=== PATIENT | female | born 1990 | race American Indian/Alaskan Native ===

== ENCOUNTER 2017-06-07 05:42 | Day surgery (SDC) | payer MEDICAID ==
[2017-05-23 09:16] VITALS: BMI 19.8
[2017-06-07] MEDS ORDERED: Propofol 10 mg/ml Inj (20 ML) ONE (07:10)
[2017-06-07] MEDS ORDERED: Midazolam 2 MG/2 ML VIAL ONE (07:10)
[2017-06-07] MEDS ORDERED: Acetaminophen/Codeine elixir 120-12mg/5ml PO PRN (07:41)
[2017-06-07] MEDS ORDERED: ceFAZolin IV 1 gm in Dextrose 1 GM/50 ML BAG IVPB ONE (07:44)
[2017-06-07] MEDS ORDERED: Dextrose 5%/0.45% NS 1,000 ML IV SCH (07:45)
[2017-06-07] MEDS ORDERED: Neostigmine Methylsulfate 3mg/3ml Syringe IV ONE (08:03)
[2017-06-07] MEDS ORDERED: Lidocaine Hydrochloride 5 ML INJ ONE (08:03)
[2017-06-07] MEDS ORDERED: HYDROmorphone 0.5 mg/0.5 ml ISec IVP PRN (08:21)
[2017-06-07 11:23] VITALS: BP 111/72; PULSE 76; RESP 20; TEMP 97; O2SAT 100
--- NOTE | 2017-06-07 12:38 | OP ---
PROCEDURE DATE: 06/07/2017 PREOPERATIVE DIAGNOSIS: Chronic tonsillitis. POSTOPERATIVE DIAGNOSIS: Chronic tonsillitis. PROCEDURE: Tonsillectomy. SIGNIFICANT FINDINGS: 2+ tonsils. DESCRIPTION OF PROCEDURE: The patient was brought into the room and placed in supine position. Anesthesia was initiated through an ET tube. The patient was draped in the usual manner. Right tonsil was grabbed and pulled medially. Incision was made in the anterior tonsillar pillar using a plasma knife. Dissections were done between tonsil and tonsillar fossa using plasma knife until the tonsil was removed. Bleeding was controlled using plasma knife. Next, the other tonsil was grabbed and pulled medially. Incision was made in the anterior tonsillar pillar using a plasma knife. Dissections were done between tonsil and tonsillar fossa using plasma knife until the tonsil was removed. Bleeding was controlled using a plasma knife. Both the tonsillar beds were rubbed vigorously with a plasma knife wand. No bleeding was noted. Mouth gag was let down for 30 seconds being noted. The mouth gag was taken down and removed. The patient was taken off anesthesia and taken to recovery room in stable manner. Anthony Miranda MD
== END 2017-06-07 11:25 | disposition home or self-care (01) ==
LOC: C.SDS 05:42
PROVIDERS: ATTEND Otolaryngology
DX: J35.01 Chronic tonsillitis (principal)
CPT/HCPCS: 42826; 88304; J0690; J2250; J2405; J2704; J2710; J3010

== ENCOUNTER 2017-06-10 16:19 | Emergency (ER) | payer MEDICAID ==
[2017-06-10 16:20] VITALS: BMI 19.8
[2017-06-10 16:44] VITALS: RESP 18
[2017-06-10] MEDS ORDERED: Sodium Chloride 0.9% 1,000 ML IV ONE (17:48)
[2017-06-10] MEDS ORDERED: Dexamethasone 4 mg/1 ml ONE (18:02)
[2017-06-10 18:03] LABS: BASO % 0.5 % (0.0-2.0); EOS # 0.1 K/uL (0.0-0.7); EOS % 0.5 % (0.0-4.0); HEMATOCRIT 40.3 % (34.0-47.0); LYMPH # 2.5 K/uL (1.0-4.3); LYMPH % 26.2 % (20.0-40.0); MEAN CELL VOLUME 79.1 fL (81.0-99.0); MEAN CORPUSCULAR HEMOGLOBIN 26.2 pg (27.0-31.0); MEAN CORPUSCULAR HGB CONC 33.1 g/dL (33.0-37.0); MEAN PLATELET VOLUME 9.5 fL (7.2-11.7); MONO # 0.9 K/uL (0.0-0.8); NRBC % 0.1 % (0.0-2.0); RED CELL DISTRIBUTION WIDTH 13.6 % (11.5-14.5); WHITE BLOOD COUNT 9.7 K/uL (4.8-10.8)
[2017-06-10] MEDS ORDERED: Sodium Chloride 0.9% 1,000 ML ONE (18:03)
[2017-06-10 18:12] LABS: CHLORIDE 101 mmol/L (98-107); INR 1.1
[2017-06-10 18:13] LABS: SODIUM 138 mmol/L (132-148)
[2017-06-10 18:15] LABS: ALB/GLOB RATIO 1.1 (1.0-2.1); ALKALINE PHOSPHATASE 55 U/L (38-126); AST/SGOT 23 U/L (14-36); BILIRUBIN,TOTAL 1.1 mg/dL (0.2-1.3); BLOOD UREA NITROGEN 14 mg/dL (7-17); CARBON DIOXIDE 27 mmol/L (22-30); GFR AFRICAN-AMERICAN > 60; GLUCOSE,RANDOM 77 mg/dL (65-105); TOTAL PROTEIN 8.6 g/dL (6.3-8.3)
[2017-06-10 18:16] LABS: ALT/SGPT 30 U/L (9-52); CALCIUM 9.3 mg/dl (8.6-10.4)
--- NOTE | 2017-06-10 18:27 | C.PDOC ---
History Of Present Illness <Easton Collins - Last Filed: 06/10/17 19:12> <Irving Arthur - Last Filed: 06/10/17 20:39> 27 y/o female presents to ED s/p Tonsillectomy on Tuesday with complaints of neck pain, headache and difficulty swallowing. Patient denies injury, fever, chills, n/v, numbness or any other complaints at this time. (Easton Collins) History Per: Patient History/Exam Limitations: None Onset/Duration Of Symptoms: Days Current Symptoms Are (Timing): Still Present <Easton Collins - Last Filed: 06/10/17 19:12> <Irving Arthur - Last Filed: 06/10/17 20:39> Time Seen by Provider: 06/10/17 17:41 Chief Complaint (Nursing): ENT Problem Past Medical History Reviewed: Historical Data, Nursing Documentation, Vital Signs - Medical History PMH: Anxiety, Asthma, Back Problems, Depression, Chronic Pain (Lower Back) Surgical History: Tonsillectomy Family History: States: No Known Family Hx - Social History Hx Alcohol Use: No Hx Substance Use: No - Immunization History Hx Tetanus Toxoid Vaccination: No Hx Influenza Vaccination: No Hx Pneumococcal Vaccination: No <Easton Collins - Last Filed: 06/10/17 19:12> Review Of Systems Except As Marked, All Systems Reviewed And Found Negative. Musculoskeletal: Positive for: Neck Pain Neurological: Positive for: Headache <Easton Collins - Last Filed: 06/10/17 19:12> Physical Exam - Physical Exam Appears: Non-toxic, No Acute Distress Skin: Normal Color, Warm, Dry, No Rash Head: Atraumatic, Normacephalic Eye(s): bilateral: Normal Inspection Oral Mucosa: Moist, Trismus Throat: Normal, No Erythema, Other (No active bleeding) Neck: Normal ROM, Supple Chest: Symmetrical Cardiovascular: Rhythm Regular, No Murmur Respiratory: Normal Breath Sounds, No Rales, No Rhonchi, No Wheezing Gastrointestinal/Abdominal: Soft, No Tenderness, No Guarding, No Rebound Neurological/Psych: Oriented x3 <Easton Collins - Last Filed: 06/10/17 19:12> ED Course And Treatment - Laboratory Results Result Diagrams: 06/10/17 18:00 06/10/17 18:00 O2 Sat by Pulse Oximetry: 99 (RA) Pulse Ox Interpretation: Normal <Easton Collins - Last Filed: 06/10/17 19:12> - Laboratory Results Result Diagrams: 06/10/17 18:00 06/10/17 18:00 Pulse Ox Interpretation: Normal Progress Note: spoke with dr argueta., ok to discharge. Patient tolerating po. <Irving Arthur - Last Filed: 06/10/17 20:39> Medical Decision Making <Easton Collins - Last Filed: 06/10/17 19:12> <Yisel Arthurdi - Last Filed: 06/10/17 20:39> Medical Decision Making: Time: [address] Argueta who requests patient to be given Decadron and a reassessment 2-3 hours after. He is requesting a call back after the reassessment and states no imaging studies should be done at the moment. Time: 0700 Patient to be signed out to Dr. Arthur pending reassessment. (Easton Collins) Disposition - Disposition Disposition Time: 19:00 <Easton Collins - Last Filed: 06/10/17 19:12> Counseled Patient/Family Regarding: Studies Performed, Diagnosis, Need For Followup <Irving Arthur - Last Filed: 06/10/17 20:39> - Disposition Referrals: Anthony Argueta MD [Staff Provider] - Disposition: HOME/ ROUTINE Condition: STABLE Prescriptions: Oxycodone HCl 5 mg PO TID #50 ml Instructions: Pharyngitis (ED) Forms: [facility] (Chinese) - Clinical Impression Clinical Impression: Throat pain, Post-tonsillectomy pain - Scribe Statement The provider has reviewed the documentation as recorded by the Scribe <Easton Collins - Last Filed: 06/10/17 19:12> <Irving Arthur - Last Filed: 06/10/17 20:39> - Scribe Statement Skip Hernández All medical record entries made by the Scribe were at my direction and personally dictated by me. I have reviewed the chart and agree that the record accurately reflects my personal performance of the history, physical exam, medical decision making, and the department course for this patient. I have also personally directed, reviewed, and agree with the discharge instructions and disposition. (Easton Collins)
[2017-06-10 19:30] LABS: RBC URINE 11 /hpf (0-3); URINE BACTERIA OCC (<OCC); URINE BILIRUBIN NEGATIVE (NEGATIVE); URINE BLOOD NEGATIVE (NEGATIVE); URINE COLOR Yellow (YELLOW); URINE GLUCOSE (UA) NORMAL (Normal); URINE KETONE 2+ mg/dL (NEGATIVE); URINE LEUKOCYTE ESTERASE 2+ Leu/uL (Negative); URINE PROTEIN NEGATIVE (NEGATIVE); WBC URINE 15 /hpf (0-5)
[2017-06-10 20:49] VITALS: BP 99/64; PULSE 96; TEMP 98.6; O2SAT 100
== END 2017-06-10 20:49 | disposition home or self-care (01) ==
LOC: C.ER 16:19
DX: G89.18 Other acute postprocedural pain (principal); F41.9 Anxiety disorder, unspecified
CPT/HCPCS: 80053; 81001; 84703; 85025; 85610; 85730; 96361; 96374; 99284; J1100; J7040